=== PATIENT | female | born 1990 | race Two or more races ===

== ENCOUNTER 2018-10-11 11:18 | Outpatient (CLI) | payer OTHER | END 2018-10-11 11:40 | disposition home or self-care (01) | LOC: RX STUDY 11:18 | DX: N97.0 Female infertility associated with anovulation (principal) ==

== ENCOUNTER 2023-02-11 15:10 | Inpatient (IN) | payer OTHER ==
[~2023-02-11] VITALS: Ht 157.5 cm; Wt 75.7 kg
[~2023-02-11 15:10] MED LIST: IRON236 MG PO; OBTREX DHA COM1 EACH PO; PROBIOTIC250 MG PO; TUMS200 MG PO
== END 2023-02-20 12:24 | disposition home or self-care (01) | DRG 788 ==
LOC: LDR 02-17 09:27 → O/R 02-17 16:32 → OB/GYN 02-17 21:56
PROVIDERS: ADMIT Obstetrics & Gynecology Gynecology; ATTEND Obstetrics & Gynecology Gynecology
PROC: 4A1HXCZ Monitoring of Products of Conception, Cardiac Rate, External Approach (ICD-10-PCS; 2023-02-17)
PROC: 10D00Z1 Extraction of Products of Conception, Low, Open Approach (ICD-10-PCS; principal; 2023-02-17 18:00)
DX: O32.1XX0 Maternal care for breech presentation, not applicable or unspecified (principal); O34.211 Maternal care for low transverse scar from previous cesarean delivery; Z3A.38 38 weeks gestation of pregnancy; Z37.0 Single live birth; Z20.822 Contact with and (suspected) exposure to COVID-19

== ENCOUNTER 2023-02-17 07:25 | Outpatient (CLI) | payer OTHER | END 2023-02-17 10:02 | disposition still patient (30) | LOC: NST 07:25 | PROVIDERS: ATTEND Obstetrics & Gynecology Gynecology | DX: Z34.83 Encounter for supervision of other normal pregnancy, third trimester (principal) ==

== ENCOUNTER 2023-12-14 12:28 | Outpatient (CLI) | payer OTHER | END 2023-12-14 13:19 | disposition home or self-care (01) | LOC: NST 12:28 | PROVIDERS: ATTEND Obstetrics & Gynecology Maternal & Fetal Medicine | DX: Z34.92 Encounter for supervision of normal pregnancy, unspecified, second trimester (principal) ==